=== PATIENT | female | born 1960 | race Caucasian/White ===

== ENCOUNTER 2019-11-08 11:40 | Emergency (ER) | payer MEDICAID ==
--- NOTE | 2019-11-08 13:17 | EDM.PDOC ---
ED HPI GENERAL MEDICAL PROBLEM - General Chief Complaint: Head Injury Stated Complaint: INJURY TO FACE Time Seen by Provider: 11/08/19 13:05 - History of Present Illness INITIAL COMMENTS - FREE TEXT/NARRATIVE: Intoxicated and fell last night sustaining lower lip laceration over 14 hours ago. Your looks Rawl and bleeding has stopped. Patient has poor dentition but there is no dental loss. No active bleeding no discharge no surrounding cellulitis noted patient denies any other injury denies any loss of consciousness and denies any neck pain. Tetanus is 1 year ago patient is not allergic to penicillin. She understand that at this time this laceration cannot be sutured and that he will have to be taken care of by oral antibiotic and heal under secondary intention. 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: - Infectious Disease History Infectious Disease History: Reports: Chicken Pox - Past Surgical History Female Surgical History: Reports: Section, Hysterectomy Social & Family History - Family History Family Medical History: Noncontributory - Tobacco Use Smoking Status *Q: Never Smoker Second Hand Smoke Exposure: No - Caffeine Use Caffeine Use: Reports: None - Recreational Drug Use Recreational Drug Use: No ED ROS GENERAL - Review of Systems Review Of Systems: See Below Constitutional: Reports: No Symptoms HEENT: Reports: Other (Duration as noted above) Respiratory: Reports: No Symptoms Cardiovascular: Reports: No Symptoms Endocrine: Reports: No Symptoms GI/Abdominal: Reports: No Symptoms Hematologic/Lymphatic: Reports: No Symptoms ED EXAM, HEAD INJURY - Physical Exam Exam: See Below Exam Limited By: No Limitations General Appearance: Alert, WD/WN, No Apparent Distress Head: Atraumatic, Normocephalic Eyes: Bilateral Eye: EOMI, Normal Inspection, PERRL Ears: Normal External Exam, Normal Canal, Hearing Grossly Normal, Normal TMs Nose: Normal Inspection, Normal Mucousa, No Blood Throat/Mouth: Other (Complex lower lip laceration crossing [place] border appears old with abnormal margins no active bleeding, the wound appears too old to suture, dentition intact no fracture tooth, no intraoral laceration) Neck: Non-Tender, Full Range of Motion, Normal Alignment Respiratory: No Respiratory Distress, Lungs Clear, Normal Breath Sounds, No Accessory Muscle Use, Chest Non-Tender Cardiovascular: Normal Peripheral Pulses, Regular Rate, Rhythm, No Edema, No Gallop, No JVD, No Murmur, No Rub GI/Abdominal Exam: Normal Bowel Sounds, Soft, Non-Tender, No Organomegaly, No Distention, No Abnormal Bruit, No Mass Course - Vital Signs Last Recorded V/S: Last Vital Signs Temp 98 F 11/08/19 12:26 Pulse 84 11/08/19 12:26 Resp 16 11/08/19 12:26 BP 116/68 11/08/19 12:26 Pulse Ox 99 11/08/19 12:26 Departure - Departure Time of Disposition: 13:16 Disposition: Home, Self-Care 01 Condition: Good Clinical Impression: Infected laceration of lip Qualifiers: Encounter type: initial encounter Qualified Code(s): S01.511A - Laceration without foreign body of lip, initial encounter; L08.9 - Local infection of the skin and subcutaneous tissue, unspecified - Discharge Information Instructions: Wound Infection, [id number], Mouth Laceration, [id number] Referrals: PCP,None [Primary Care Provider] - Additional Instructions: Follow-up with [facility] - [facility] [address] [place] [address] [id number] [address] [id number] Wound check and follow-up for your wound infection and healing by secondary intention Sepsis Event Note - Evaluation Sepsis Screening Result: No Definite Risk - Focused Exam Vital Signs: Vital Signs Temp Pulse Resp BP Pulse Ox 11/08/19 12:26 98 F 84 16 116/68 99 Date Exam was Performed: 11/08/19 Time Exam was Performed: 13:11
== END 2019-11-08 20:03 | disposition home or self-care (01) ==
LOC: MW.ED 11:40
DX: S01.511A Laceration without foreign body of lip, initial encounter (principal); L08.9 Local infection of the skin and subcutaneous tissue, unspecified; Z88.8 Allergy status to other drugs, medicaments and biological substances; Z88.5 Allergy status to narcotic agent; W19.XXXA Unspecified fall, initial encounter; W22.8XXA Striking against or struck by other objects, initial encounter
CPT/HCPCS: 99282